=== PATIENT | female | born 1945 | race Caucasian/White ===

== ENCOUNTER → 2016-08-16 | Outpatient (CLI) | payer BC ==
[~2016-08-16] MED LIST: DIPH-437 PO; ERGO500037 PO; LORA-741 PO
== END | disposition home or self-care (01) ==
LOC: C.MAMM 14:41
PROVIDERS: ATTEND Nurse Practitioner
DX: C50.919 Malignant neoplasm of unspecified site of unspecified female breast (principal); M81.0 Age-related osteoporosis without current pathological fracture

== ENCOUNTER → 2016-10-21 | Outpatient (CLI) | payer BC ==
[2016-10-21 12:10] LABS: BASO % 0.2 %; BASO ABS # 0.01 K/uL (0-0.2); COMPLETE YES; EOS % 1.8 %; HEMATOCRIT 42.8 % (37-47); LYMPH % 42.1 %; LYMPH ABS # 2.09 K/uL (1.2-3.4); MEAN CELL VOLUME 91.8 fL (80-100); MEAN CORPUSCULAR HEMOGLOBIN 30.7 pg (25-34); MEAN CORPUSCULAR HGB CONC 33.4 g/dl (32-36); MEAN PLATELET VOLUME 10.6 fL (7.4-10.4); MONO % 6.6 %; NEUT % 49.3 %; PLATELET COUNT 297 K/uL (130-400); RED BLOOD COUNT 4.66 M/uL (4.2-5.4); WHITE BLOOD COUNT 4.97 K/uL (4.8-10.8)
[2016-10-21 12:15] LABS: URINE APPEARANCE CLEAR (CLEAR); URINE BILIRUBIN NEG (NEG); URINE COLOR YELLOW; URINE EPITHELIAL CELL AUTO >30 /lpf (0-5); URINE NITRITE NEG (NEG); URINE PH 5.5 (4.5-7.5); UROBILINOGEN NEG (NEG); ZZUR CULT IF INDIC CLEAN CATCH NO
[2016-10-21 12:17] LABS: MANUAL MICROSCOPIC REQUIRED? NO; REVIEW REQ? NO
[2016-10-21 13:20] LABS: BLOOD UREA NITROGEN 23 mg/dl (7-18); BUN/CREATININE RATIO 27.1 (10-20); CARBON DIOXIDE 24 mmol/L (21-32); CHLORIDE 107 mmol/L (98-107); CREATININE 0.83 mg/dl (0.60-1.20); GLUCOSE 94 mg/dl (70-99); POTASSIUM 4.1 mmol/L (3.5-5.1); SODIUM 140 mmol/L (136-145)
[2016-10-21 13:40] LABS: ALKALINE PHOSPHATASE 75 U/L (45-117); ALT/SGPT 20 U/L (12-78); AST/SGOT 16 U/L (15-37); CHOLESTEROL 234 mg/dl (0-200); CHOLESTEROL/HDL RATIO 3.5; HDL CHOLESTEROL 66 mg/dl; LDL CHOLESTEROL CALCULATED 141 mg/dl; TRIGLYCERIDES 136 mg/dl (0-150); VERY LOW DENSITY LIPOPROT CALC 27 mg/dl
[2016-10-21 13:42] LABS: ESTIMATED AVERAGE GLUCOSE 111 mg/dl; HA1C FLAG Normal (Normal)
[2016-10-21 14:02] LABS: CALCIUM 9.5 mg/dl (8.5-10.1)
--- NOTE | 2016-10-27 13:22 | CODING QUERY MEDICAL NECESSITY ---
CQSUPPORTING DIAGNOSIS NEEDED A supporting diagnosis is required for the test/procedure performed on this patient in order for us to be reimbursed by the patient's insurance. Please provide a supporting diagnosis for the following test/procedure listed below next to the test name along with your signature. *If there is no additional diagnosis for this patient that would support the following test/procedure please document that below next to the test/procedure. Test(s)/Procedure(s) that require a supporting diagnosis: DOS 10/21/16 GLYCATED HEMOGLOBIN TEST Provider Signature: Date: Thank you [facility] Information Management Once completed, please kindly fax back to [phone] For questions please call [phone]
== END | disposition home or self-care (01) ==
LOC: C.LABBFT 09:37
PROVIDERS: ATTEND Internal Medicine
DX: R73.03 Prediabetes (principal); E78.5 Hyperlipidemia, unspecified; D05.11 Intraductal carcinoma in situ of right breast; M81.0 Age-related osteoporosis without current pathological fracture

== ENCOUNTER → 2016-11-17 | Outpatient (CLI) | payer BC ==
--- NOTE | 2016-11-17 13:18 | MAMMOGRAPHY REPORT ---
BILATERAL DIGITAL SCREENING MAMMOGRAM WITH CAD: 11/17/2016 CLINICAL HISTORY: Routine screening. Patient has no complaints. TECHNIQUE: Bilateral CC and MLO views were obtained. Current study was also evaluated with a Comput er Aided Detection (CAD) system. COMPARISON: Comparison is made to exams dated: 11/14/2015 mammogram, 05/15/2015 mammogram, 11/11/2014 ma mmogram, 11/27/2013 mammogram - [facility], 10/03/2003 mammogram, and 05/30/2014 ult rasound - [facility]. BREAST COMPOSITION: There are scattered areas of fibroglandular density in both breasts. FINDINGS: There are mild vascular calcifications in the breast. Expected architectural distortion i n the upper outer posterior left breast, and lower outer anterior right breast, denoting areas of pr evious surgery. There are a few scattered stable benign-appearing rounded and rim calcifications. No new suspicious mass, architectural distortion or cluster of microcalcifications is seen. IMPRESSION: ACR BI-RADS CATEGORY 1: NEGATIVE There is no mammographic evidence of malignancy. A 1 year screening mammogram is recommended. The p atient will receive written notification of the results. Approximately 10% of breast cancers are not detected with mammography. A negative mammographic repor t should not delay biopsy if a clinically suggestive mass is present. Pennie Clemens M.D. ay/:11/17/2016 10:42:08 Audit Partner: Osiris YADAV)(Michele), [facility] letter sent: Normal 1/2 BI-RADS Code: ACR BI-RADS Category 1: Negative
== END | disposition home or self-care (01) ==
LOC: C.MAMM 09:58
PROVIDERS: ATTEND Nurse Practitioner
DX: Z12.31 Encounter for screening mammogram for malignant neoplasm of breast (principal)

== ENCOUNTER → 2017-03-11 | Outpatient (CLI) | payer BC ==
[2017-03-11 12:28] LABS: CHOLESTEROL/HDL RATIO 1.9
== END | disposition home or self-care (01) ==
LOC: C.LABBFT 09:02
PROVIDERS: ATTEND Internal Medicine
DX: E78.5 Hyperlipidemia, unspecified (principal)

== ENCOUNTER → 2017-03-25 | Outpatient (CLI) | payer BC ==
[~2017-03-25] MED LIST changes: +OPTIRAY 320 IV PRN
--- NOTE | 2017-03-25 15:46 | DIAGNOSTIC IMAGING REPORT ---
CT ABD/PELVIS IV AND ORAL CONT CLINICAL HISTORY: R10.32 left lower quadrant abdominal pain COMPARISON STUDY: 05-21 TECHNIQUE: Following the IV administration of 120 mL of Optiray-320, CT scan of the abdomen and pelvis was performed from the lung bases to the proximal femurs. Images are reviewed in the axial, sagittal, and coronal planes. IV contrast was administered without complication. A dose lowering technique was utilized adhering to the principles of ALARA. CT DOSE: 390.00 mGy.cm FINDINGS: Lower chest: There are mild bibasal atelectatic changes. There is an opacity within the left breast which cannot be fully evaluated likely represents asymmetric glandular tissue. Liver: The contrast-enhanced liver is normal in size, contour, and attenuation. There is no intrahepatic biliary ductal dilatation. The hepatic veins and portal veins are patent. Gallbladder: Unremarkable. Spleen: Normal in size and attenuation. Pancreas: There is fatty atrophy of the pancreas. No focal masses are visualized. Adrenal glands: Unremarkable. Kidneys: There is a 16 mm right renal hypodense lesion. This exceeds water attenuation and remains indeterminate. The relative stability however over a 6 year interval strongly favors a benign lesion.. No solid renal masses are visualized. There is no significant hydronephrosis. Bowel: There are no transition zones indicate bowel obstruction. There is colonic diverticulosis. There are no acute peridiverticular inflammatory changes. The appendix appears normal. Peritoneum: There is no intraperitoneal free air or abdominal ascites. Vasculature: The abdominal aorta is normal in course and caliber. Adenopathy: None. Pelvic viscera: The endometrium measures 5.5 mm. No bladder abnormalities are visualized. Skeletal structures: There is bilateral L5 spondylolysis. There is a grade 1 spondylolisthesis of L5 on S1. IMPRESSION: 1. No evidence of bowel obstruction. No evidence of free air 2. Colonic diverticulosis. No evidence of acute diverticulitis. 3. Normal appendix 4. Fatty atrophy of the pancreas Electronically signed by: Demario Miles M.D. 03/25/2017 3:44 PM Dictated Date/Time: 03/25/2017 3:39 PM
== END | disposition home or self-care (01) ==
LOC: C.CTS 15:12
PROVIDERS: ATTEND Internal Medicine
DX: K57.30 Diverticulosis of large intestine without perforation or abscess without bleeding (principal); K86.89 Other specified diseases of pancreas

== ENCOUNTER → 2017-05-20 | Outpatient (CLI) | payer BC ==
[~2017-05-20] MED LIST changes: -OPTIRAY 320 IV PRN
[2017-05-20 12:31] LABS: BASO % 0.2 %; BASO ABS # 0.01 K/uL (0-0.2); COMPLETE YES; EOS % 1.6 %; IG% 0.2 %; LYMPH % 37.2 %; LYMPH ABS # 2.39 K/uL (1.2-3.4); MEAN CELL VOLUME 90.3 fL (80-100); MEAN CORPUSCULAR HGB CONC 32.1 g/dl (32-36); MEAN PLATELET VOLUME 10.7 fL (7.4-10.4); MONO % 6.8 %; PLATELET COUNT 325 K/uL (130-400); RED BLOOD COUNT 4.76 M/uL (4.2-5.4); WHITE BLOOD COUNT 6.43 K/uL (4.8-10.8)
[2017-05-20 12:44] LABS: ALT/SGPT 21 U/L (12-78); BLOOD UREA NITROGEN 23 mg/dl (7-18); CALCIUM 9.5 mg/dl (8.5-10.1); CARBON DIOXIDE 26 mmol/L (21-32); CHLORIDE 106 mmol/L (98-107); CREATININE 1.01 mg/dl (0.60-1.20); GLUCOSE 97 mg/dl (70-99); POTASSIUM 4.1 mmol/L (3.5-5.1); SODIUM 140 mmol/L (136-145)
[2017-05-20 12:47] LABS: ALB/GLOB RATIO 0.9 (0.9-2); ALKALINE PHOSPHATASE 87 U/L (45-117); AST/SGOT 17 U/L (15-37)
[2017-05-20 12:49] LABS: THYROID STIMULATING HORMONE 2.35 uIu/ml (0.300-4.500)
== END | disposition home or self-care (01) ==
LOC: C.LABBFT 09:28
PROVIDERS: ATTEND Nurse Practitioner Family
DX: D05.12 Intraductal carcinoma in situ of left breast (principal); K59.00 Constipation, unspecified

== ENCOUNTER → 2017-09-19 | Outpatient (CLI) | payer BC ==
[2017-09-19 12:28] LABS: BASO % 0.1 %; BASO ABS # 0.01 K/uL (0-0.2); EOS % 1.2 %; EOS ABS # 0.08 K/uL (0-0.5); HEMATOCRIT 44.7 % (37-47); HEMOGLOBIN 14.6 g/dL (12.0-16.0); IG# 0.02 K/uL (0.00-0.02); LYMPH ABS # 2.67 K/uL (1.2-3.4); MEAN CELL VOLUME 89.9 fL (80-100); MEAN CORPUSCULAR HEMOGLOBIN 29.4 pg (25-34); MEAN CORPUSCULAR HGB CONC 32.7 g/dl (32-36); MEAN PLATELET VOLUME 10.7 fL (7.4-10.4); MONO % 7.3 %; NEUT % 52.1 %; NEUT ABS # 3.57 K/uL (1.4-6.5); PLATELET COUNT 311 K/uL (130-400); RED CELL DISTRIBUTION WIDTH CV 15.2 % (11.5-14.5); RED CELL DISTRIBUTION WIDTH SD 50.3 fL (36.4-46.3); WHITE BLOOD COUNT 6.85 K/uL (4.8-10.8)
[2017-09-19 13:18] LABS: HEMOGLOBIN A1C 5.7 % (4.5-5.6)
[2017-09-19 13:19] LABS: ALBUMIN 3.9 gm/dl (3.4-5.0); ALT/SGPT 22 U/L (12-78); AST/SGOT 17 U/L (15-37); BLOOD UREA NITROGEN 20 mg/dl (7-18); CALCIUM 9.5 mg/dl (8.5-10.1); CARBON DIOXIDE 27 mmol/L (21-32); CREATININE 0.91 mg/dl (0.60-1.20); GLUCOSE 101 mg/dl (70-99); POTASSIUM 3.9 mmol/L (3.5-5.1); SODIUM 138 mmol/L (136-145)
[2017-09-19 13:22] LABS: ALKALINE PHOSPHATASE 92 U/L (45-117); TOTAL PROTEIN 8.2 gm/dl (6.4-8.2)
== END | disposition home or self-care (01) ==
LOC: C.LABBFT 09:35
PROVIDERS: ATTEND Internal Medicine
DX: R73.03 Prediabetes (principal); E55.9 Vitamin D deficiency, unspecified

== ENCOUNTER → 2017-09-22 | Outpatient (CLI) | payer BC | END | disposition home or self-care (01) | LOC: C.LABBFT 09:50 | PROVIDERS: ATTEND Internal Medicine | DX: R73.03 Prediabetes (principal) ==

== ENCOUNTER → 2017-09-27 | Outpatient (CLI) | payer BC | END | disposition home or self-care (01) | LOC: C.LABBFT 09:04 | PROVIDERS: ATTEND Internal Medicine | DX: R77.1 Abnormality of globulin (principal) ==

== ENCOUNTER → 2017-09-30 | Outpatient (CLI) | payer BC | END | disposition home or self-care (01) | LOC: C.LABBFT 10:47 | PROVIDERS: ATTEND Internal Medicine | DX: R77.1 Abnormality of globulin (principal) ==

== ENCOUNTER → 2017-11-18 | Outpatient (CLI) | payer BC ==
--- NOTE | 2017-11-21 07:44 | MAMMOGRAPHY REPORT ---
BILATERAL DIGITAL SCREENING MAMMOGRAM TOMOSYNTHESIS WITH CAD: 11/18/2017 CLINICAL HISTORY: Asymptomatic. Personal history of breast cancer. TECHNIQUE: Breast tomosynthesis in addition to standard 2D mammography was performed. Current study was also evaluated with a Computer Aided Detection (CAD) system. COMPARISON: Comparison is made to exams dated: 11/17/2016 mammogram, 11/11/2014 mammogram, 05/30/2014 m ammogram, 11/27/2013 mammogram - [facility], 10/03/2003 mammogram, and 05/15/2015 mamm ogram - [facility]. BREAST COMPOSITION: There are scattered areas of fibroglandular density in both breasts. FINDINGS: No suspicious masses, calcifications, or areas of architectural distortion are noted in ei ther breast. There has been no significant interval change compared to prior exams. There are stable postsurgical changes in the right 6:00 and left upper outer quadrant. Bilateral benign-appearing ca lcifications are not significantly changed. IMPRESSION: ACR BI-RADS CATEGORY 2: BENIGN There is no mammographic evidence of malignancy. A 1 year screening mammogram is recommended. The pa tient will receive written notification of the results. Approximately 10% of breast cancers are not detected with mammography. A negative mammographic report should not delay biopsy if a clinically suggestive mass is present. Shantel Holloway M.D. ah/:11/18/2017 15:13:48 Industrial Relations Worker: Marcia YADAV)(Michele), [facility] letter sent: Normal 1/2 BI-RADS Code: ACR BI-RADS Category 2: Benign
== END | disposition home or self-care (01) ==
LOC: C.MAMM 10:09
PROVIDERS: ATTEND Internal Medicine
DX: Z12.31 Encounter for screening mammogram for malignant neoplasm of breast (principal); Z85.3 Personal history of malignant neoplasm of breast

== ENCOUNTER 2019-02-12 05:48 | Inpatient (IN) ==
--- NOTE | 2019-01-17 13:19 | PAT Medication Instructions ---
Medication Instructions Date of Service January 17, 2019 Home Medications Metamucil 1 dose PO QAM cholecalciferol (vitamin D3) [Vitamin D3] 2,000 unit PO DAILY denosumab [Prolia] 60 mg SUBCUT UD omeprazole 20 mg PO QAM rosuvastatin 10 mg PO HS zolpidem [Ambien] 10 mg PO HS Continue as directed denosumab [Prolia] 60 mg SUBCUT UD DO NOT take the morning of surgery Metamucil 1 dose PO QAM cholecalciferol (vitamin D3) [Vitamin D3] 2,000 unit PO DAILY Take morning of surgery With a small sip of water, OTHERWISE NOTHING TO EAT OR DRINK AFTER MIDNIGHT: omeprazole 20 mg PO QAM Take evening before surgery rosuvastatin 10 mg PO HS zolpidem [Ambien] 10 mg PO HS Other Notes If you have any questions please call us at [phone] or [phone] or [phone] or [phone]
--- NOTE | 2019-01-18 08:42 | Anesthesiology Consultation ---
Date of Service January 18, 2019 Assessment & Plan (1) Encounter for pre-operative examination: Chart Review Chart Review: Acceptable Risk for Surgery and Patient seen in Pre Admission Testing Teaching & Discussion Pre-Anesthesia Teaching/Discussion Notes: Instructed NPO after midnight before surgery,except medications with 15 cc of water. Medication instructions provided according to the PAT guidelines. History Surgery Operation Date: 02/12/19 07:30 Proposed Procedures p L4-L5,L5-S1 Laminectomy and Fusion - Arley Logan DO Height/Weight Height: 4 ft 11 in Weight: 67.1 kg Allergies Allergy/AdvReac Type Severity Reaction Status Date / Time Bactrim AdvReac Unknown NAUSEA Verified 08/01/14 12:47 fexofenadine AdvReac Unknown NAUSEA Verified 01/18/19 08:39 paroxetine AdvReac Unknown NAUSEA Unverified 01/09/19 13:51 sulfamethoxazole AdvReac Unknown NAUSEA Verified 01/09/19 13:51 trimethoprim AdvReac Unknown NAUSEA Verified 01/09/19 13:51 Medications Home Medications Medication Instructions Recorded Confirmed Last Taken Metamucil 1 dose PO QAM 01/09/19 01/09/19 Unknown cholecalciferol (vitamin D3) 2,000 unit PO DAILY 01/09/19 01/09/19 Unknown [Vitamin D3] denosumab [Prolia] 60 mg SUBCUT UD 01/09/19 01/09/19 Unknown omeprazole 20 mg PO QAM 01/09/19 01/09/19 01/09/19 rosuvastatin 10 mg PO HS 01/09/19 01/09/19 01/08/19 zolpidem [Ambien] 10 mg PO HS 01/09/19 01/09/19 01/08/19 Past Medical History Medical History Acid reflux controlled Age related osteoporosis History of breast cancer B/L s/p lumpectomy/xrt (2014) Hyperlipidemia Exercise / Class Metabolic Activity III < 4 Walking/Shop/Light housework Past Surgical History Surgical History History of colonoscopy History of lumpectomy of both breasts History of tooth extraction ALL UPPER TEETH Past Anesthesia History No Hx of Anesthesia Complications and No Family Hx of Anesthesia Complications History of PONV No Hx of PONV and No Hx of Motion Sickness Social History Smoking Status: Never smoker Do You Dip or Chew Tobacco: No Hx Alcohol Use: Yes Alcohol type: wine alcohol intake frequency: holidays/special occasions only substance use type: does not use Review of Systems Reflux controlled. LBP with LLE radiculopathy/neuropathy. Patient denies chest pain, shortness of breath, cough, wheezing, palpitations. Physical Exam Vital Signs VITALS BP 150/78 P 74 TEMP 97.6 SP02 96%RA RESP 16 PHYSICAL Full neck and c-spine range of motion. Full TMJ range of motion. TMD 2.5 finger breaths Mallampati Score 3 Dentition: full dentures on upper, partial on lower Lungs: clear throughout to auscultation Cardiac: regular rate and rhythm, no murmurs noted Spine: normal Carotid arteries: negative bruit Extremities: no edema Testing Laboratory Results 01/18/19 09:05 01/18/19 09:05 PT 10.3 Seconds (9.0-12.0) 01/18/19 09:05 INR 1.0 (0.9-1.1) 01/18/19 09:05 APTT 29.6 Seconds (21.0-31.0) 01/18/19 09:05 Blood Type O Positive 01/18/19 09:05 Antibody Screen NEGATIVE 01/18/19 09:05 Electrocardiogram Date: 01/18/19 Findings: + NSR @ (69) Chest X-Ray Date: 01/18/19 Findings: + NAD Lung volumes are at the lower limits of normal. This is unchanged. Mild cardiomegaly is noted. No acute cardiopulmonary findings. Echocardiogram Date: 08/08/13 EF 60-65%. No RWMA. Grade I DD. No significant valvular disease.
--- NOTE | 2019-01-18 09:25 | XRay Report ---
XR chest Pre-admission PA/Lat CLINICAL HISTORY: Preoperative evaluation. COMPARISON STUDY: Chest radiograph July 24, 2014. FINDINGS: Lung volumes are at the lower limits of normal. This is unchanged. There is no pneumothorax or pleural effusion. There is no consolidation or evidence for pulmonary edema. Mild cardiomegaly is noted. IMPRESSION: 1. No acute cardiopulmonary findings. 2. Mild cardiomegaly. Electronically signed by: Vitor Chang M.D. 01/18/2019 9:23 AM
[2019-01-18 11:23] LABS: Basophils # (auto) 0.01 K/uL (0-0.2); Basophils % (auto) 0.2 %; Eosinophils # (auto) 0.07 K/uL (0-0.5); Eosinophils % (auto) 1.1 %; Hematocrit (blood only) 41.5 % (37-47); Hemoglobin 13.8 g/dL (12.0-16.0); Immature Granulocytes # (auto) 0.01 K/uL (0.00-0.02); Immature Granulocytes % (auto) 0.2 %; Lymphocytes # (auto) 2.29 K/uL (1.2-3.4); Lymphocytes % (auto) 37.1 %; Mean Corpuscular Hgb Conc 33.3 g/dL (32-36); Mean Corpuscular Volume 90.4 fL (80-100); Mean Platelet Volume 10.8 fL (7.4-10.4); Monocytes # (auto) 0.54 K/uL (0.11-0.59); Monocytes % (auto) 8.7 %; Neutrophils # (auto) 3.26 K/uL (1.4-6.5); Neutrophils % (auto) 52.7 %; Platelet Count 287 K/uL (130-400); RDW Coefficient of Variation 14.9 % (11.5-14.5); Red Blood Count 4.59 M/uL (4.2-5.4); White Blood Count 6.18 K/uL (4.8-10.8)
[2019-01-18 11:30] LABS: BUN Creatinine Ratio 30.2 (10-20); Calcium 9.2 mg/dl (8.5-10.1); Creatinine Clr Calc Pharmacy 47.8 ml/min; Est GFR (African American) 74.6; Est GFR (Non-African American) 64.3; Potassium 3.6 mmol/L (3.5-5.1)
[2019-01-18 11:38] LABS: Partial Thromboplastin Ratio 1.1; Partial Thromboplastin Time 29.6 Seconds (21.0-31.0); Prothrombin Time 10.3 Seconds (9.0-12.0)
--- NOTE | 2019-02-09 15:06 | History and Physical Report ---
DATE OF ADMISSION: 02/12/2019 CHIEF COMPLAINT: Back pain, lower extremity difficulty. HISTORY OF PRESENT ILLNESS: She has a grade 2 spondylolisthesis. She is set up for elective laminectomy and fusion L4-S1. PAST MEDICAL HISTORY: Positive for breast carcinoma, high cholesterol, usual childhood diseases. PAST SURGICAL HISTORY: Breast surgery. ALLERGIES: PAXIL, BACTRIM. FAMILY HISTORY: Bladder cancer in her father. SOCIAL HISTORY: , rarely drinks. No tobacco. Active lifestyle. REVIEW OF SYSTEMS: Denies any fevers, sweats, chills. Ear, nose and throat negative. Denies chest pain, palpitations, heart beat changes. Denies asthma, wheezing, shortness of breath. Denies nausea, vomiting, urgency, frequency. She has no sleep issues or depression. She has musculoskeletal back pain and lower extremity difficulty. PHYSICAL EXAMINATION: GENERAL: She is 4 feet 8 inches, 147 pounds. VITAL SIGNS: Blood pressure 130/84, pulse 80, respirations 16. HEENT: Pupils react to light and accommodation. CARDIAC: Normal S1, S2, no ectopy. LUNGS: Clear. ABDOMEN: Soft, nontender. Bowel sounds present. MUSCULOSKELETAL: She has weakness of dorsiflexion, weakness of plantarflexion, some pain with straight leg raising. Otherwise, fairly normal exam. No upper motor neuron issues, slight gait abnormality. ASSESSMENT: Lumbar spondylolisthesis and stenosis. PLAN: Includes an L4-S1 fusion.
[2019-02-12] MEDS ORDERED: CEFAZOLIN 2000MG 2,000 MG/15 ML SYR IV SCH (06:00)
[2019-02-12] MEDS ORDERED: LR 15ML/HR IV SCH (06:00)
[2019-02-12] MEDS ORDERED: SODIUM CHLORIDE 0.9% 1000ML IV SCH (06:00)
[2019-02-12] MEDS ORDERED: ATROPINE SULFATE 0.1 MG/ML 10ML SYR IV PRN (06:30)
[2019-02-12] MEDS ORDERED: ePHEDrine sulfate 50 MG/ML AMP IV PRN (06:30)
[2019-02-12] MEDS ORDERED: ONDANSETRON INJ 2 MG/ML 2 ML VIAL IV PRN ×2 (06:30→11:24)
[2019-02-12] MEDS ORDERED: BACITRACIN INJ 50,000 UNIT VIAL ONE (06:50)
[2019-02-12] MEDS ORDERED: BUPIVACAINE/EPINEPHRINE 0.5% MPF 1:200,000 30 ML VIAL ONE (06:50)
[2019-02-12] MEDS ORDERED: GELATIN SPONGE SZ 100 ONE (06:50)
[2019-02-12] MEDS ORDERED: VANCOMYCIN HCL 1000MG/20ML VIAL ONE (06:50)
[2019-02-12] MEDS ORDERED: THROMBIN FOR SOLN 20000 UNIT KIT ONE (06:50)
[2019-02-12] MEDS ORDERED: NEOSTIGMINE METHYLSULFATE 5 MG/5 ML SYR ONE (06:52)
[2019-02-12] MEDS ORDERED: MIDAZOLAM HCL 1 MG/ML 2ML VIAL ONE (06:52)
[2019-02-12] MEDS ORDERED: LIDOCAINE HCL 2% 2 ML VIAL/AMP(20MG/ML) INFIL ONE (06:52)
[2019-02-12] MEDS ORDERED: DEXAMETHASONE SOD INJ 4 MG/ML VIAL ONE (06:52)
[2019-02-12] MEDS ORDERED: GLYCOPYRROLATE 0.2 MG/ML VIAL ONE (06:52)
[2019-02-12] MEDS ORDERED: PROPOFOL IV EMULSION 10 MG/ML 20 ML VIAL IV ONE (06:52)
[2019-02-12] MEDS ORDERED: fentaNYL citrate 100 MCG/2 ML VIAL ONE (06:52)
[2019-02-12] MEDS ORDERED: ONDANSETRON INJ 2 MG/ML 2 ML VIAL ONE (06:52)
[2019-02-12] MEDS ORDERED: HYDROmorphone INJ 2 MG/ML SYR/VIAL ONE (06:52)
--- NOTE | 2019-02-12 07:13 | History & Physical Bridge Note ---
Date of Service February 12, 2019 History & Physical Bridge Note I have examined the patient, reviewed the History & Physical and in the interval since the performance of the History & Physical I have noted the following changes of clinical significance: no changes noted
--- NOTE | 2019-02-12 07:36 | History & Physical Bridge Note ---
Date of Service February 12, 2019 History & Physical Bridge Note I have examined the patient, reviewed the History & Physical and in the interval since the performance of the History & Physical I have noted the following changes of clinical significance: no changes noted; Laminectomy only L4-S1
[2019-02-12] MEDS ORDERED: ROCURONIUM BROMIDE 10 MG/ML 5 ML VIAL ONE (09:03)
--- NOTE | 2019-02-12 10:01 | Post Operative Brief Note ---
PG Immediate Post Op with CF Date of Surgery February 12, 2019 Pre & Post Diagnosis Operation Date: 02/12/19 07:30 Pre-Op Diagnosis: Lumbar Spinal Stenosis, Lumbar Spondylolisthesis Post-Op Diagnosis: Lumbar Spinal Stenosis, Lumbar Spondylolisthesis Procedure Operation Date: 02/12/19 07:30 Actual Procedures p L4-L5,L5-S1 Laminectomy and Fusion(Not Applicable) - Arley Logan DO Surgeon Arley Logan DO Diagnostic Tech tiffany Estimated Blood Loss 100 Findings Consistent with Post-Op Diagnosis Drains Arango Catheter and Hemovac Drain Disposition Accompanied Patient To Recovery: Yes Overlapping Procedure I was immediately available: during the entire case.
--- NOTE | 2019-02-12 10:08 | Fluoroscopy Report ---
INTRAOPERATIVE RADIOGRAPHS CLINICAL HISTORY: L4-S1 spinal fusion. Fluoroscopy time: 8 seconds. FINDINGS: 5 spot fluoroscopic views of the lumbar spine are presented. The images show changes of light inectomy and posterior fusion from L4 -S1. Interpedicular screws are present at all levels. The ortho pedic hardware appears intact. IMPRESSION: Intraoperative images from L4 -S1 spinal fusion as above. Electronically signed by: Robbi Kern M.D. 02/12/2019 10:06 AM
[2019-02-12] MEDS: fentaNYL citrate 100 MCG/2 ML VIAL IV PRN ×2 (10:34→10:39)
--- NOTE | 2019-02-12 10:59 | Anesthesiology Progress Note ---
Date of Service February 12, 2019 Anesthesia Post Procedure Vital Signs Vital Signs: Temp Pulse Resp BP Pulse Ox 02/12/19 10:50 84 16 159/83 H 98 02/12/19 10:40 90 20 164/87 H 95 02/12/19 10:30 95 H 19 162/77 H 100 02/12/19 10:20 89 19 159/73 H 98 02/12/19 10:10 97.2 F L 102 H 16 169/81 H 98 02/12/19 06:14 97.9 F 72 18 154/85 H 94 Pain Intensity Left Leg: Pain Intensity: 5 Transfer of Care Handoff Completed per policy Notes Mental Status: alert / awake / arousable and participated in evaluation Patient Amnestic to Procedure: Yes Nausea / Vomiting: adequately controlled Pain: adequately controlled Airway Patency, RR, SpO2: stable & adequate BP & HR: stable & adequate Hydration State: stable & adequate Anesthetic Complications: no major complications apparent and Pt Satisfied with anesthetic care
--- NOTE | 2019-02-12 11:02 | Operative Report ---
DATE OF OPERATION: 02/12/2019 PREOPERATIVE DIAGNOSIS: Grade 1 to grade 2 spondylolisthesis of the spine at L5-S1. POSTOPERATIVE DIAGNOSIS: Grade 1 to grade 2 spondylolisthesis of the spine at L5-S1 including severe instability of lumbar spine with a complete unstable segment at L5-S1 and actually L4-L5 as well. Because of the spondylolisthesis and a defect in the pars interarticularis, the 5 vertebrae actually was loose in regard to the sacrum 4 with simply ligamentous attachments which led to her pathology which led to her surgery. Furthermore, with a decompression laminectomy taking off the facet joints to decompress the nerve roots which were severely compressed, that decreased the stability further. DESCRIPTION OF PROCEDURE: The patient was positively identified in the preop holding area, marked, formal timeout taken as well. The patient was brought to the operating room and general intubated anesthetic provided to the patient, placed prone, scrubbed, prepped, and draped sterile. Formal timeout. We made a skin incision and fascial incision. We dissected the soft tissue in the same plane. We were careful with all bleeding surfaces. We meticulously got down to the lamina of L4-L5 and the sacrum. The lamina at L5 was completely loose. There were no bony attachments. L4-L5 was also loose up on the 5th vertebrae, a complete instability, almost a fracture-type model example. We decompressed the neural elements. I was able do a complete laminectomy. The entire lamina of 5 was removed in a piecemeal fashion, some of the lamina of 4, foraminotomies, partial facetectomies. At the L5-S1, it was actually a complete facetectomy. The entire facet was removed to decompress the nerve roots bilaterally. We then safely instrumented the spine. Pedicle screws were placed safely into the sacrum, safely into the 4th vertebrae. The 5th vertebrae was a little more precarious. It was very unstable in the pelvis. I used various techniques to hold the vertebrae relatively still where I would very slowly advance the tap and then screw into the vertebrae without causing any further destruction. I was pleased with the moderate reduction of the spondylolisthesis. We did not do a complete reduction. I examined the disc intervals. I felt that I could not do an interbody fusion safely on the patient because of the angles and the nerve roots were draped right over the disc interval, I thought it was too dangerous. We locked down the construct to make sure pedicle screws were safely left and right. We then irrigated thoroughly with about 500 mL of fluid. We locked down the construct with a cap and yoly construct. This was by the [employer]. We then bone grafted out over the sacral ala transverse process of 5 and transverse process of 4. I used a combination of autograft morselized from the patient's laminar structures along with demineralized bone matrix. I was pleased with the amount of bone we had retrieved and packed into the area. It was first decorticated. We then closed over with some vancomycin powder and Hemovac drain with 1 Vicryl suture, 2-0 and staple gun on the skin. Sterile dressings applied. The patient returned to PACU in improved, stable condition. ESTIMATED BLOOD LOSS: 100 mL. SURGEON: Arley Logan DO EIGHT SECTION BLOWER: ROMEO [place] COMPLICATIONS. ____. Sponge and needle counts correct at the close. IMPLANTS USED: By the [employer]. I attest to the content of the Intraoperative Record and any orders documented therein. Any exception s are noted below.
[2019-02-12] MEDS ORDERED: FAMOTIDINE 20 MG TAB PO PRN (11:24)
[2019-02-12] MEDS ORDERED: MAGNESIUM HYDROXIDE SUSP 30 ML UDC PO PRN (11:24)
[2019-02-12] MEDS ORDERED: NON-FORMULARY MEDICATION (Denosumab 60 MG) SQ SCH (11:24)
[2019-02-12] MEDS ORDERED: BISACODYL 10 MG SUPP PR PRN (11:24)
[2019-02-12 11:58] LABS: Basophils # (auto) 0.01 K/uL (0-0.2); Basophils % (auto) 0.1 %; Eosinophils # (auto) 0.01 K/uL (0-0.5); Eosinophils % (auto) 0.1 %; Hemoglobin 13.1 g/dL (12.0-16.0); Immature Granulocytes # (auto) 0.09 K/uL (0.00-0.02); Immature Granulocytes % (auto) 0.6 %; Lymphocytes # (auto) 0.77 K/uL (1.2-3.4); Lymphocytes % (auto) 5.5 %; Mean Corpuscular Hgb Conc 33.6 g/dL (32-36); Mean Corpuscular Volume 90.1 fL (80-100); Mean Platelet Volume 10.4 fL (7.4-10.4); Monocytes # (auto) 0.07 K/uL (0.11-0.59); Monocytes % (auto) 0.5 %; Neutrophils # (auto) 13.16 K/uL (1.4-6.5); Neutrophils % (auto) 93.2 %; Platelet Count 260 K/uL (130-400); RDW Coefficient of Variation 14.4 % (11.5-14.5); RDW Standard Deviation 47.7 fL (36.4-46.3); Red Blood Count 4.33 M/uL (4.2-5.4); White Blood Count 14.11 K/uL (4.8-10.8)
[2019-02-12] MEDS: LACTATED RINGER'S 1,000 ML IV SCH ×2 (12:04→23:30)
[2019-02-12] MEDS: OXYCODONE HCL IR 5 MG TAB (IMMEDIATE RELEASE) PO PRN ×3 (12:05→21:06)
[2019-02-12] MEDS ORDERED: ePHEDrine sulfate 50 MG/ML AMP ONE (12:55)
[2019-02-12] MEDS: HYDROmorphone INJ 0.5 MG/0.5 ML SYR IV PRN ×2 (13:56→18:08)
[2019-02-12] MEDS: CEFAZOLIN 1000MG 1,000 MG/7.5 ML SYR IV SCH ×2 (13:56→22:07)
[2019-02-12] MEDS: DOCUSATE SODIUM/SENNA 50/8.6MG TAB PO SCH (20:56)
[2019-02-12] MEDS: ROSUVASTATIN CALCIUM 10 MG TAB PO SCH (20:56)
[2019-02-12] MEDS: ACETAMINOPHEN 500 MG TAB PO PRN (22:56)
[2019-02-12] MEDS: ZOLPIDEM TARTRATE 10 MG TAB PO PRN (22:57)
[2019-02-13] MEDS: OXYCODONE HCL IR 5 MG TAB (IMMEDIATE RELEASE) PO PRN ×2 (02:44→08:34)
[2019-02-13] MEDS: ACETAMINOPHEN 500 MG TAB PO PRN ×2 (04:16→23:16)
[2019-02-13 06:26] LABS: BUN Creatinine Ratio 13.1 (10-20); Calcium 8.2 mg/dl (8.5-10.1); Creatinine Clr Calc Pharmacy 49.2 ml/min; Est GFR (African American) 77.7; Potassium 3.9 mmol/L (3.5-5.1)
--- NOTE | 2019-02-13 07:41 | Anesthesiology Progress Note ---
Date of Service February 13, 2019 Anesthesia Post Procedure Vital Signs Vital Signs: Temp Pulse Pulse Resp BP Pulse Ox 02/13/19 06:49 37.0 C 90 16 129/77 92 02/13/19 03:11 37 C 92 H 18 112/69 92 02/12/19 23:05 36.8 C 99 H 18 127/75 95 02/12/19 19:23 36.6 C 105 H 18 153/85 H 95 02/12/19 18:09 98 H 18 159/88 H 96 02/12/19 14:17 76 16 150/88 H 02/12/19 13:26 97 H 16 158/81 H 94 02/12/19 12:08 36.4 C L 99 H 16 165/93 H 95 02/12/19 11:38 79 16 151/77 H 02/12/19 11:26 36.4 C L 78 16 157/80 H 02/12/19 10:50 84 16 159/83 H 98 02/12/19 10:40 90 20 164/87 H 95 02/12/19 10:30 95 H 19 162/77 H 100 02/12/19 10:20 89 19 159/73 H 98 02/12/19 10:10 36.2 C L 102 H 16 169/81 H 98 Pain Intensity Left Leg: Pain Intensity: 10 Bilateral Back: Pain Intensity: 10 Notes Mental Status: alert / awake / arousable Patient Amnestic to Procedure: Yes Nausea / Vomiting: adequately controlled Pain: adequately controlled Airway Patency, RR, SpO2: stable & adequate BP & HR: stable & adequate Hydration State: stable & adequate
[2019-02-13] MEDS: CHOLECALCIFEROL 1,000 UNITS TAB PO SCH (08:31)
[2019-02-13] MEDS ORDERED: TRAMADOL HCL 50 MG TABLET PO PRN (14:11)
[2019-02-13] MEDS: KETOROLAC TROMETHAMINE 15 MG/ML VIAL IV PRN ×3 (15:48→22:20)
[2019-02-13] MEDS ORDERED: CIPROFLOXACIN 500 MG TAB PO STA (19:22)
[2019-02-13] MEDS: DOCUSATE SODIUM/SENNA 50/8.6MG TAB PO SCH (21:17)
[2019-02-13] MEDS: ZOLPIDEM TARTRATE 10 MG TAB PO PRN (21:17)
[2019-02-13] MEDS: ROSUVASTATIN CALCIUM 10 MG TAB PO SCH (21:18)
[2019-02-13] MEDS: CIPROFLOXACIN 500 MG TAB PO SCH (21:18)
[2019-02-13 21:39] LABS: Appearance Urine Clear (Clear); Bacteria Urine Automated Negative (Negative); Bilirubin Urine Negative (Negative); Blood Urine Negative (Negative); Color Urine Yellow; Epithelial Cell Urine Auto >30 /lpf (0-5); Glucose Urine UA Negative (Negative); Ketones Urine Negative (Negative); Leukocyte Esterase Urine 1+ (Negative); Nitrite Urine Negative (Negative); Protein Urine Negative (Negative); RBC Urine Automated 0-4 /hpf (0-4); Urobilinogen Urine Negative (Negative); pH Urine 6.5 (4.5-7.5)
[2019-02-14] MEDS: CIPROFLOXACIN 500 MG TAB PO SCH (07:25)
[2019-02-14] MEDS: CHOLECALCIFEROL 1,000 UNITS TAB PO SCH (07:25)
[2019-02-14] MEDS: ACETAMINOPHEN 500 MG TAB PO PRN (07:28)
--- NOTE | 2019-02-14 07:38 | Discharge Summary ---
She is alert, oriented, taking p.o., ambulatory. No confusion, chest pain, shortness of breath. She had an uneventful 48-hour stay. She will be discharged home this morning in improved stable condition. Prescriptions on her chart. Followup appointment made and instruction precautions provided here at the hospital and in the office.
[2019-02-14] MEDS: OXYCODONE HCL IR 5 MG TAB (IMMEDIATE RELEASE) PO PRN (11:17)
== END 2019-02-14 12:30 | disposition home or self-care (01) | DRG 460 ==
LOC: ASU 05:48 → 3E 10:19